=== PATIENT | male | born 1970 | race Caucasian/White ===

== ENCOUNTER 2019-04-27 06:37 | Day surgery (SDC) | payer OTHER ==
[~2019-04-27 06:37] MED LIST: Bupivacaine 0.5%/EPINEPHrine 1:200,000 30 ML SDV ONE; Ketorolac 30 MG/ML SDV ONE; Lactated Ringers 1,000 ML ONE; Midazolam 1 MG/ML 2 ML SDV ONE; Propofol 200 MG/20 ML SDV ONE; Sodium Chloride 0.9% 10 ML Syringe FLUSH PRN; ceFAZolin 1 GM Vial ONE; fentaNYL 250 MCG/5 ML SDV ONE
[2019-04-27] MEDS: Lactated Ringers 1,000 ML IV SCH (07:02)
[2019-04-27] MEDS ORDERED: Rocuronium 50 MG/5 ML Vial IV ONE (07:59)
[2019-04-27] MEDS ORDERED: Glycopyrrolate 0.2 MG/ML 5 ML MDV IV ONE (07:59)
[2019-04-27] MEDS ORDERED: Midazolam 1 MG/ML 2 ML SDV IV ONE (07:59)
[2019-04-27] MEDS ORDERED: Neostigmine Methylsulfate 10 MG/10 ML MDV IV ONE (07:59)
[2019-04-27] MEDS ORDERED: Ketorolac 30 MG/ML SDV IVPUSH ONE (07:59)
[2019-04-27] MEDS ORDERED: Ondansetron 4 MG/2 ML SDV IV ONE (07:59)
[2019-04-27] MEDS ORDERED: Propofol 200 MG/20 ML SDV IV ONE (07:59)
[2019-04-27] MEDS ORDERED: fentaNYL 250 MCG/5 ML SDV IV ONE (07:59)
[2019-04-27] MEDS ORDERED: ceFAZolin 1 GM Vial IV ONE (07:59)
[2019-04-27] MEDS: ceFAZolin 1 GM Vial ONE (08:00)
[2019-04-27] MEDS: Bupivacaine 0.5%/EPINEPHrine 1:200,000 30 ML SDV INFILT ONE ×2 (08:00)
[2019-04-27] MEDS: Sodium Chloride 0.9% 20 ML SDV ONE (08:00)
--- NOTE | 2019-04-27 09:20 | PCM.OPNOTE ---
- General Post-Op/Procedure Note Date of Surgery/Procedure: 04/27/19 Operative Procedure(s): Umbilical herniorrhaphy with mesh placement. Findings: Moderate severe umbilical hernia noted. Patient is symptomatic. Pre Op Diagnosis: As above. Anesthesia Technique: General ET Tube Primary Surgeon: Suni Saldivar Condition: Good Free Text/Narrative:: OPERATION PERFORMED: Umbilical herniorrhaphy with placement of Marlex mesh. PROCEDURE: The patient was given a satisfactory spinal anesthetic and placed in the supine position. His abdomen is thoroughly prepped and draped in the usual fashion. The abdomen was opened by a semicircular incision in the superior portion of the umbilicus. The skin incision was deepened to the subcutaneous tissue and we came down to the fascial sheath. We found the hernia and it was dissected. It was approximately the size of a dime. We extended the fascia on each side and then we were able to excise the content which was mostly preperitoneal fat and a small amount of omental tissue. After this the defect was repaired using one silk suture. The defect was then fortified by placing Marlex mesh and attaching it with one silk suture. The subcutaneous tissue was closed with 4-0 Polysorb and the skin was also closed with 4-0 Polysorb in a subcuticular fashion. Sterile pressure dressing was applied. The patient tolerated the procedure well. There were no complications. Hardly any blood loss. The patient is to followup in the clinic in 7-10 days. The patient is to wear an abdominal binder postop to prevent any recurrence and for comfort.
== END 2019-04-27 12:00 | disposition home or self-care (01) ==
LOC: KA.SDS 06:37
PROVIDERS: ATTEND Family Medicine
DX: K42.9 Umbilical hernia without obstruction or gangrene (principal); I10 Essential (primary) hypertension; E78.2 Mixed hyperlipidemia; I25.119 Atherosclerotic heart disease of native coronary artery with unspecified angina pectoris; M10.9 Gout, unspecified; E66.9 Obesity, unspecified; Z68.31 Body mass index [BMI] 31.0-31.9, adult; Z86.79 Personal history of other diseases of the circulatory system; Z79.899 Other long term (current) drug therapy; Z79.82 Long term (current) use of aspirin; Z88.8 Allergy status to other drugs, medicaments and biological substances; Z87.891 Personal history of nicotine dependence
CPT/HCPCS: C1781; J0690; J1885; J2250; J2405; J2704; J2710; J3010; J3490; J7120

== ENCOUNTER 2022-02-27 11:55 | Emergency (ER) | payer BC, OTHER ==
[2022-02-27] MEDS ORDERED: HYDROmorphone 1 MG/ML Syringe IVPUSH ONE ×2 (12:39→14:11)
[2022-02-27] MEDS: HYDROmorphone 1 MG/ML Syringe ONE ×2 (12:39→13:18)
[2022-02-27 13:28] LABS: ANION GAP 14.2 mmol/L (5-15)
[2022-02-27] MEDS ORDERED: Ondansetron 4 MG/2 ML SDV ONE (14:12)
[2022-02-27] MEDS ORDERED: Ondansetron 4 MG/2 ML SDV IVPUSH ONE (14:12)
== END 2022-02-27 14:37 ==
LOC: KA.ED 11:55
DX: S22.070A Wedge compression fracture of T9-T10 vertebra, initial encounter for closed fracture (principal); S22.080A Wedge compression fracture of T11-T12 vertebra, initial encounter for closed fracture; S42.192A Fracture of other part of scapula, left shoulder, initial encounter for closed fracture; S01.01XA Laceration without foreign body of scalp, initial encounter; H61.23 Impacted cerumen, bilateral; I48.91 Unspecified atrial fibrillation; E78.00 Pure hypercholesterolemia, unspecified; I10 Essential (primary) hypertension; Z88.8 Allergy status to other drugs, medicaments and biological substances; Z79.82 Long term (current) use of aspirin; Z79.899 Other long term (current) drug therapy; W11.XXXA Fall on and from ladder, initial encounter
CPT/HCPCS: 12002; 36415; 70450; 71045; 71260; 72125; 74177; 80053; 85025; 96374; 96375; 96376; 99284-25; J1170; J2405